=== PATIENT | female | born 1965 | race Caucasian/White ===

== ENCOUNTER 2021-05-28 05:57 | Emergency (ER) | payer SELFPAY ==
[~2021-05-28] VITALS: Ht 152.4 cm; Wt 61.2 kg
--- NOTE | 2021-05-28 06:10 | NUR ---
PT OFFLOADED TO LOBBY.
--- NOTE | 2021-05-28 06:12 | NUR ---
CALLED PT TO TRIAGE, PT IN RESTROOM.
[2021-05-28 06:19] VITALS: BP 145/78
--- NOTE | 2021-05-28 07:00 | NUR ---
PER [employer], PT REFUSED CT AND XRAY.NEENA CIFUENTES MADE AWARE.
--- NOTE | 2021-05-28 07:59 | NUR ---
55 y/o female pt presents to ed with c/o lac to left eyebrow post mechanical fall per ems. bleeding is controlled at this time, pt refusing lac assessment at this time. denies n/v/d. denies dysuria, hematuria, urinary retention or frequency. denies syncope, loc or head/neck injury. skin is pink/warm/dry. aa&ox4 with even and steady gait. lungs clear bl. hr even and regular, cap refill <3, no edema present at this time. pt denies any fever, cp, sob or cough at this time. patient states pain is 10/10 at this time. ermd made aware of pt status. pmh: schizoaffective allergy: denies med: denies
--- NOTE | 2021-05-28 09:32 | NUR ---
pt states she would like to leave [facility] at this time. form was brought to pt, pt refused to sign states, "i think ill pass". rn faculty and ermd notified at this time
== END 2021-05-28 09:32 | disposition left against medical advice (07) ==
LOC: EDBD 05:57 → MED 05:57
DX: S60.512A Abrasion of left hand, initial encounter (principal); S00.81XA Abrasion of other part of head, initial encounter; W18.39XA Other fall on same level, initial encounter; Y93.89 Activity, other specified; Y92.89 Other specified places as the place of occurrence of the external cause; Y99.8 Other external cause status
CPT/HCPCS: 99283